=== PATIENT | female | born 1945 | race Caucasian/White ===

== ENCOUNTER 2016-07-11 22:12 | Inpatient (IN) | payer MEDICARE, OTHER ==
--- NOTE | ~2016-07-11 | HP ---
Unit #: [id number] #: [id number] Patient: RAE CLIFTON [id number] [address] [address] [id number] I MR#: [id number] NAME: RAE CLIFTON. ROOM: [facility] Age: 70 Sex: F Admission Date: 07/11/2016 : 1945 Attending Physician: Nicole El M.D. Primary Care Physician: Cameron Baig M.D. HISTORY AND PHYSICAL CHIEF COMPLAINT Community acquired pneumonia, COPD exacerbation, and acute hypoxic respiratory failure. HISTORY This 70-year-old female with COPD, hyperlipidemia, peripheral vascular disease, was transferred from [facility] emergency department for COPD exacerbation. The patient states that she was well until one week ago when she developed increasing shortness of breath with a deep cough productive of some clear sputum, feeling feverish and chilled. Presented to [facility] emergency department late last evening with an initial room air O2 saturation of 88%, she is febrile to 101.8, and tachycardic to 120. She was treated with Solu-Medrol, DuoNeb, Tylenol, IV fluids, potassium, Rocephin, Zithromax and Phenergan. On examination, she has end expiratory wheeze. Chest x-ray shows an atypical pneumonia. PAST MEDICAL HISTORY 1. COPD, patient does not require oxygen. 2. DJD. 3. Hyperlipidemia. 4. GERD. 5. Peripheral vascular disease, status post bilateral stenting to the legs. 6. Chronic low back pain. 7. Total abdominal hysterectomy. 8. Left breast cyst removed. ALLERGIES None. HOME MEDICATIONS Lipitor 80 mg daily; Proventil nebulizer as needed; Percocet 7.5/325 t.i.d. p.r.n.; Lasix 20 mg daily as needed; Phenergan p.r.n.; Mobic 15 mg as needed; aspirin 81 mg daily; Elavil 25 mg 1-2 tablets q.h.s.; Neurontin 300 mg t.i.d.. FAMILY HISTORY CAD. SOCIAL HISTORY The patient lives alone. She smoked a pack or more a day for 50 years. Stopped smoking six months ago. Seldom drinks alcohol. Unit #: [id number] #: [id number] Patient: RAE CLIFTON REVIEW OF SYSTEMS Notable for shortness of breath, productive cough, fever, sweats, chills, shortness of breath, DJD, hyperlipidemia, COPD, acid reflux, peripheral vascular disease, chronic back pain and above mentioned surgeries. All other systems were reviewed and are negative. PHYSICAL EXAMINATION GENERAL: Pleasant 70-year-old female currently in no acute distress. She is, however, feeling short of breath. VITAL SIGNS: Temperature as high as 101.8, pulse 80, respirations 25, blood pressure 111/51, weight is 139 pounds with a BMI of 24. HEENT: Eyes - PERRLA. Extraocular muscles are intact. Pharynx is benign. NECK: Supple without adenopathy or thyromegaly. CHEST: End expiratory wheezes. CARDIAC: Normal S1 and S2 without definite murmur. ABDOMEN: Bowel sounds are present. No hepatosplenomegaly, tenderness, or masses. EXTREMITIES: Without clubbing, cyanosis or edema. Pedal pulses are diminished. NEUROLOGIC: Patient is awake, alert, and oriented. Cranial nerves are intact. Equal strength throughout. DIAGNOSTIC STUDIES ADMISSION LABS: Hematocrit is 36.2, white blood count is 14.3, and normal platelet count. Negative cardiac markers. Normal coags. SMA 12 - glucose 117, sodium 131, potassium 3.1, chloride 94, albumin 3.4, lactic acid normal, flu serology negative. Urinalysis - 2+ protein. IMAGING STUDIES: Chest x-ray - abnormal interstitial markings. Normal heart size, findings suggestive of some sort of atypical infectious or inflammatory disease. CARDIOLOGY STUDIES: EKG - sinus tachycardia, rate 110. ASSESSMENT 1. Community acquired pneumonia with COPD exacerbation, acute hypoxic respiratory failure. 2. Hyperlipidemia. 3. Hyponatremia. 4. Hypokalemia. 5. Chronic back pain. 6. Peripheral vascular disease. PLANS 1. Zithromax and Rocephin. 2. Steroids, Symbicort, DuoNeb and mucolytics. 3. Replace potassium, which was done at [facility], and check magnesium level. 4. Hold Lasix for now. 5. DVT and gastritis prophylaxis. 6. Further workup depending on above. Dictated by Nicole El M.D. Unit #: [id number] #: [id number] Patient: RAE CLIFTON AML/ts TD: 07/12/2016 07:21 JOB #: [id number] HISTORY AND PHYSICAL X Nicole El MD HISTORY AND PHYSICAL
--- NOTE | ~2016-07-11 | CT55 ---
[facility] A Service of [facility] & [facility] RADIOLOGY TEXT RESULTS PATIENT: RAE CLIFTON LOCATION: [facility] 450-01 : [birth year] UNIT #: [id number] AGE: [address]: Devika Mendes MD SEX: F ORDER DR: [id number] [facility] [address] [place], [place] [address] [id number] I MR#: [id number] Acc #: [id number] NAME: RAE CLIFTON. : 1945 SEX: F STUDY DATE/TIME: 07/12/2016 16:11 UNIT: [facility] ROOM: [facility] STUDY DESCRIPTION: CT Chest W Con Attending Physician: Devika Mendes M.D. Ordering Physician: Devika Mendes M.D. Primary Care Physician: Cameron Baig M.D. MEDICAL IMAGING REPORT This report is preliminary unless electronic signature is present EXAM CT scan of the chest with contrast, 07/12/2016. HISTORY COPD. Productive cough, fever, and shortness of air since Sunday. COMPARISON STUDIES None TECHNIQUE Axial 5-mm images were obtained through the chest with IV contrast. The patient was given 70 mL of Isovue-370. This CT exam was performed with one or more of the following radiation dose reduction techniques: automatic exposure control, adjustment of mA and/or kV according to patient size, and iterative reconstruction. FINDINGS There is a calcified granuloma in the left lingula, and there is some minimal anterior atelectasis in the lingula with some faint tree-in-bud type infiltrates in the left upper lobe. There are centrilobular emphysematous changes throughout the lungs. There is very minimal right base atelectasis. There is no mediastinal or hilar adenopathy. The thyroid gland is normal. The bones are unremarkable. IMPRESSION 1. Mild centrilobular emphysematous changes throughout the lungs. 2. Minimal anterior plate-like atelectasis with minimal tree-in-bud type infiltrate in the left upper lobe. 3. Minimal right base costophrenic angle atelectasis. 4. Otherwise, normal. STS. [facility] A Service of [facility] & [facility] RADIOLOGY TEXT RESULTS PATIENT: RAE CLIFTON LOCATION: [place] [address]- : [birth year] UNIT #: [id number] AGE: [address]: Devika Mendes MD SEX: F ORDER DR: Dictated by... Nicola Partida M.D. THIS IS AN ELECTRONICALLY VERIFIED REPORT Nicola Partida M.D. at 07/13/2016 7:26 AM NANCY/jacquelin TD: 07/12/2016 18:47 JOB #: [id number] MEDICAL IMAGING REPORT COPY
--- NOTE | ~2016-07-11 | EKG ---
PATIENT: RAE CLIFTON UNIT #: [id number] Ventricular Rate: 108 BPM Atrial Rate: 108 BPM P-R Interval: 160 ms QRS Duration: 82 ms Q-T Interval: 324 ms QTC Calculation(Bezet): 434 ms P [place]: 72 degrees Calculated R [place]: 64 degrees Calculated T [place]: 59 degrees Diagnosis Line: Sinus tachycardia Diagnosis Line: Poor R wave progression questionable lead position Diagnosis Line: or body habitus Otherwise normal ECG Diagnosis Line: No previous ECGs available Diagnosis Line: Confirmed by GORDO FLORES MD ([id number]) on 07/13/2016 Diagnosis Line: 12:55:00 PM INTERPRETING MD: MARK LAMBERT
--- NOTE | ~2016-07-11 | CR72 ---
[facility] A Service of [facility] & [facility] RADIOLOGY TEXT RESULTS PATIENT: RAE CLIFTON LOCATION: [facility] 450- : [birth year] UNIT #: [id number] AGE: [address]: Devika Mendes MD SEX: F ORDER DR: [id number] [place] [id number] I MR#: [id number] Acc #: [id number] NAME: RAE CLIFTON. : 1945 SEX: F STUDY DATE/TIME: 07/11/2016 21:49 UNIT: SEDOF ROOM: [facility] STUDY DESCRIPTION: CR Chest Single View Portable Attending Physician: Nicole El M.D. Ordering Physician: Sam Peters M.D. Primary Care Physician: Cameron Baig M.D. MEDICAL IMAGING REPORT This report is preliminary unless electronic signature is present. EXAM Portable chest x-ray single view, 07/11/2016 HISTORY Cough, short of air and fever x5 days COMMENT Single frontal portable view of the chest timed 21:49 07/11/2016 compared to 01/31/2013. Heart size is within normal limits. There is calcification at the aortic knob and evidence for old granulomatous disease. There is interval worsening in the appearance of the lung parenchyma with the development of abnormal thickening of the peribronchovascular soft tissues, particularly to the bilateral lower lungs as well as generalized abnormal interstitial prominence, worst to the lower lobes with probably some bilateral lower lobe reticulonodular parenchymal disease. Findings are more concerning for atypical infectious or inflammatory disease. Lack of cardiac enlargement or obvious pleural effusion weighs against congestive failure. The pattern of involvement is not typical of a bacterial pneumonia. Clinical correlation and follow up is recommended. The costophrenic angles are not included in the field of view entirely and tiny pleural effusion is not excluded. There is no pneumothorax. IMPRESSION Abnormal chest x-ray with the interval development of abnormal interstitial markings. There is thickening of the central peribronchovascular soft tissues as well as a development of bilateral predominately lower lung reticulonodular interstitial disease. Heart size is still normal. Findings most suggestive of some type of atypical infectious of inflammatory disease. Findings are not typical of bacterial pneumonia or congestive failure. Clinical correlation and followup is STS. [facility] A Service of [facility] RADIOLOGY TEXT RESULTS PATIENT: RAE CLIFTON LOCATION: B 450-01 : [birth year] UNIT #: [id number] AGE: [address]: Devika Mendes MD SEX: F ORDER DR: recommended. Dictated by... Keren Lin M.D. THIS IS AN ELECTRONICALLY VERIFIED REPORT Keren Lin M.D. at 07/12/2016 2:18 PM PARAMJIT/soy TD: 07/12/2016 02:29 JOB #: [id number] MEDICAL IMAGING REPORT
--- NOTE | ~2016-07-11 | DS ---
Unit #: [id number] #: [id number] Patient: RAE CLIFTON [id number] [address] [address] [id number] I MR#: [id number] NAME: RAE CLIFTON. ROOM: 464 Age: 70 Sex: F Admission Date: 07/12/2016 : 1945 Discharge Date: Attending Physician: Devika Mendes M.D. Primary Care Physician: Cameron Baig M.D. DISCHARGE SUMMARY DISCHARGE DIAGNOSES 1. Acute hypoxic respiratory failure. 2. Community-acquired pneumonia, left upper lobe. 3. Chronic obstructive pulmonary disease with exacerbation. 4. Hyperlipidemia. 5. Hyponatremia. 6. Hypokalemia. 7. Chronic back pain. 8. Peripheral vascular disease. 9. Hyperglycemia secondary to steroids. No diabetes. CONSULTATIONS None. PROCEDURES None. DIAGNOSTIC TESTING LAB DATA: Hemoglobin A1C 5.6. WBC 14.9, hemoglobin 11.6, platelets 340. Sodium 141, potassium 4.2, creatinine 0.6. Blood cultures negative. Legionella negative. BNP 127. IMAGING: CT of the chest without contrast shows mild centrilobular emphysematous changes, tree-in-bud infiltrate left upper lobe. ALLERGIES None. DISCHARGE MEDICATIONS 1. Albuterol inhalation q.i.d. as needed. 2. Symbicort 2 puffs inhalation b.i.d. 3. Neurontin 300 p.o. t.i.d. 4. Amitriptyline 25 at bedtime. 5. Phenergan 12.5 take 1-2 tablets p.r.n. nausea. 6. Lipitor 80 daily. 7. Lasix 10 mg daily. 8. Aspirin 81 daily. 9. Oxycodone 7.5 mg q.8 p.r.n. 10. Prednisone tapering dose. 11. Doxycycline 100 mg p.o. b.i.d. HOSPITALIZATION COURSE A 70 year old admitted because of shortness of breath. Unit #: [id number] #: [id number] Patient: RAE CLIFTON Acute hypoxic respiratory failure from pneumonia and COPD. Currently she is on 2 liters. I am going check ambulatory pulse oximetry and arrange home O2 if sats less than 89%. Community-acquired pneumonia, left upper lobe. The patient was given Rocephin and Zithromax. Currently lungs are clear. The patient will be discharged on doxycycline. COPD with exacerbation. Started on IV Solu-Medrol, Symbicort and DuoNeb. Currently breathing better. Continue with albuterol, Symbicort, prednisone tapering dose. Mild hyperkalemia. Continue with her Lasix, which has been on hold at admission. Hyperglycemia secondary to steroids. Hemoglobin A1C is normal. Less likely diabetes. DISCHARGE PLAN 1. Discharge home. 2. Follow with family physician in 1 week. NOTE: Discharge time taken is 32 minutes. Dictated by... Carlyle Stout/chelsey TD: 07/14/2016 16:03 JOB #: [id number] DISCHARGE SUMMARY X Devika Mendes MD X DISCHARGE SUMMARY
[2016-07-11 22:02] LABS: BASOPHIL# 0.4 X10e3 (0.0-0.3); EOSINOPHIL# 0.1 X10e3 (0.0-0.7); EOSINOPHIL% 0.8 % (0.0-7.0); HEMATOCRIT 36.2 % (35.0-45.0); HEMOGLOBIN 12.6 gm/dl (12.0-16.0); LYMPHOCYTE# 0.7 X10e3 (1.0-3.5); LYMPHOCYTE% 5.2 % (17.0-45.0); MEAN CELL VOLUME 96.5 FL (83-96); MEAN CORPUSCULAR HEMOGLOBIN 33.6 PG (28-34); MEAN CORPUSCULAR HGB CONC 34.8 g/dL (30-36); MEAN PLATELET VOLUME 8.2 FL (6.5-11.5); MONOCYTE# 1.1 X10e3 (0.0-1.0); MONOCYTE% 7.8 % (3.0-12.0); NEUTROPHIL% 83.2 % (40.0-75.0); PLATELET COUNT 305 X10e3 (140-420); RED BLOOD COUNT 3.75 X10e6 (3.90-5.30); RED CELL DISTRIBUTION WIDTH 12.8 % (11.0-15.5); WHITE BLOOD COUNT 14.3 X10e3 (4.0-10.5)
[2016-07-11 22:03] LABS: DIFF IND NO
[2016-07-11 22:07] LABS: INR 1.2; PROTHROMBIN TIME (PATIENT) 13.1 SECONDS (9.5-12.4)
[2016-07-11 22:11] LABS: INFLUENZA A NEG (NEG); INFLUENZA B NEG (NEG)
[~2016-07-11 22:12] MED LIST: ALBUTEROL 0.5ML INH; AMITRYPTYLINE PO; ASPIR-TRIN325 MG PO; ASPIRIN81 M2 PO; CLARITIN10 M2 PO; FOSAMAX70 MG PO; GABAPENTIN300 M2 PO; HYDROXYZINE HCL25 M1 PO; KWELL TOP; LASIX PO; LIPITOR80 MG PO; LISINOPRIL10 MG PO; MOBIC15 MG PO; OXYCODON-ACETA1 EAC1 PO; PEPCID AC20 M2 PO; PHENERGAN25 M1 PO; PREDNISONE PO; PRILOSEC40 MG PO; TRIAMCINOLONE AC1 GM TOP; VITAMIN C AND D PO; VITAMIN D250000 UNIT PO; ZOLOFT PO
[2016-07-11 22:15] LABS: PARTIAL THROMBOPLASTIN TIME 30.9 SECONDS (25.6-38.1)
[2016-07-11 22:17] LABS: ALBUMIN SERUM 3.4 g/dL (3.5-5.0); ALKALINE PHOSPHATASE 74 U/L (32-92); ALT (SGPT) 17 U/L (10-40); AST (SGOT) 21 U/L (10-42); BILIRUBIN, DIRECT 0.1 mg/dL (0.0-0.2); BILIRUBIN,INDIRECT 0.2 mg/dL (0.0-0.9); BILIRUBIN,TOTAL 0.3 mg/dL (0.2-2.0); BLOOD UREA NITROGEN 10 mg/dL (9-23); BUN/CREATININE RATIO 16.66; CALCIUM SERUM 9.1 mg/dL (8.4-10.2); CARBON DIOXIDE 27 mmol/L (22-31); CHLORIDE 94 mmol/L (100-111); CREATININE SERUM 0.6 mg/dL (0.6-1.4); GLOM FILT RATE Estimated ABOVE60 mL/min (>60); GLUCOSE FASTING 117 mg/dL (70-110); POTASSIUM 3.1 mmol/L (3.5-5.1); PROTEIN TOTAL SERUM 6.8 g/dL (6.0-8.3); SODIUM 131 mmol/L (135-145)
[2016-07-11 22:22] LABS: POC - TROPONIN <0.05 ng/mL (<=0.05)
[2016-07-11 22:52] LABS: URINE SOURCE CLEAN CATCH
[2016-07-11 22:55] LABS: URINE APPEARANCE CLEAR; URINE BILIRUBIN NEG (NEG); URINE BLOOD NEG (NEG); URINE COLOR YELLOW; URINE GLUCOSE NEG (NORM); URINE KETONE 1+ (NEG); URINE LEUKOCYTE ESTERASE NEG (NEG); URINE NITRATE NEG (NEG); URINE PH 5.5 (5-8); URINE PROTEIN 2+ (NEG); URINE SPECIFIC GRAVITY >=1.030 (1.003-1.035)
[2016-07-11 22:57] LABS: MICRO INDICATED? NO
[2016-07-12 00:06] LABS: POC - CKMB 2.2 ng/mL (0.0-7.9)
[2016-07-12 00:07] LABS: POC - TROPONIN <0.05 ng/mL (<=0.05)
[2016-07-12 07:12] LABS: URINE SOURCE CLEAN CATCH
[2016-07-12 07:29] LABS: URINE APPEARANCE CLEAR; URINE BILIRUBIN NEG (NEG); URINE BLOOD NEG (NEG); URINE COLOR YELLOW; URINE GLUCOSE NEG (NEG); URINE KETONE NEG (NEG); URINE LEUKOCYTE ESTERASE NEG (NEG); URINE NITRATE NEG (NEG); URINE PH 6.5 (5-8); URINE PROTEIN NEG (NEG); URINE SPECIFIC GRAVITY 1.004 (1.003-1.035); URINE UROBILINOGEN 0.2 MG/DL (NEG)
[2016-07-12 07:35] LABS: CULTURE INDICATED? NO
[2016-07-12 07:41] LABS: BASOPHIL% 0.1 % (0-2.5); HEMATOCRIT 35.1 % (35.0-45.0); HEMOGLOBIN 11.7 gm/dL (12.0-16.0); LYMPHOCYTE# 0.7 X10e3 (1.0-3.5); MEAN CELL VOLUME 98.8 FL (83-96); MEAN CORPUSCULAR HEMOGLOBIN 32.9 PG (28-34); MEAN CORPUSCULAR HGB CONC 33.3 g/dL (30-36); MEAN PLATELET VOLUME 8.2 FL (6.5-11.5); MONOCYTE# 0.2 X10e3 (0-1.0); MONOCYTE% 1.7 % (3.0-12.0); NEUTROPHIL# 11.2 X10e3 (1.5-7.1); NEUTROPHIL% 92.2 % (40-75); PLATELET COUNT 264 X10e3 (140-420); RED BLOOD COUNT 3.55 X10e (3.90-5.30); RED CELL DISTRIBUTION WIDTH 13.1 % (11.0-15.5); WHITE BLOOD COUNT 12.2 X10e3 (4.0-10.5)
[2016-07-12 07:43] LABS: DIFF IND NO
[2016-07-12 08:12] LABS: BLOOD UREA NITROGEN 9 mg/dL (9-23); CALCIUM SERUM 9.2 mg/dL (8.4-10.2); CARBON DIOXIDE 28 mmol/L (22-31); CHLORIDE 100 mmol/L (100-111); CREATININE SERUM 0.4 mg/dL (0.6-1.4); GLOM FILT RATE Estimated ABOVE60 mL/min (>60); GLUCOSE FASTING 162 mg/dL (70-110); MAGNESIUM 2.1 mg/dL (1.6-3.0); POTASSIUM 4.2 mmol/L (3.5-5.1); SODIUM 134 mmol/L (135-145)
[2016-07-13 02:57] LABS: BASOPHIL% 0.1 % (0-2.5); HEMATOCRIT 33.9 % (35.0-45.0); HEMOGLOBIN 11.1 gm/dL (12.0-16.0); LYMPHOCYTE# 1.1 X10e3 (1.0-3.5); LYMPHOCYTE% 8.8 % (17.0-45.0); MEAN CELL VOLUME 99.5 FL (83-96); MEAN CORPUSCULAR HEMOGLOBIN 32.7 PG (28-34); MEAN CORPUSCULAR HGB CONC 32.8 g/dL (30-36); MEAN PLATELET VOLUME 8.5 FL (6.5-11.5); MONOCYTE# 0.6 X10e3 (0-1.0); MONOCYTE% 5.1 % (3.0-12.0); NEUTROPHIL# 10.4 X10e3 (1.5-7.1); PLATELET COUNT 288 X10e3 (140-420); RED BLOOD COUNT 3.41 X10e (3.90-5.30); RED CELL DISTRIBUTION WIDTH 13.5 % (11.0-15.5); WHITE BLOOD COUNT 12.1 X10e3 (4.0-10.5)
[2016-07-13 02:59] LABS: DIFF IND NO
[2016-07-13 03:41] LABS: BLOOD UREA NITROGEN 14 mg/dL (9-23); CARBON DIOXIDE 27 mmol/L (22-31); CHLORIDE 106 mmol/L (100-111); CREATININE SERUM 0.5 mg/dL (0.6-1.4); GLOM FILT RATE Estimated ABOVE60 mL/min (>60); GLUCOSE FASTING 165 mg/dL (70-110); MAGNESIUM 2.3 mg/dL (1.6-3.0); POTASSIUM 4.7 mmol/L (3.5-5.1); SODIUM 135 mmol/L (135-145)
[2016-07-14 03:40] LABS: BASOPHIL# 0.1 X10e3 (0-0.3); BASOPHIL% 0.4 % (0-2.5); EOSINOPHIL# 0.1 X10e3 (0-0.7); EOSINOPHIL% 0.6 % (0.0-7.0); HEMATOCRIT 35.7 % (35.0-45.0); HEMOGLOBIN 11.6 gm/dL (12.0-16.0); LYMPHOCYTE# 1.4 X10e3 (1.0-3.5); LYMPHOCYTE% 9.2 % (17.0-45.0); MEAN CELL VOLUME 99.5 FL (83-96); MEAN CORPUSCULAR HEMOGLOBIN 32.4 PG (28-34); MEAN CORPUSCULAR HGB CONC 32.5 g/dL (30-36); MEAN PLATELET VOLUME 8.5 FL (6.5-11.5); MONOCYTE# 0.7 X10e3 (0-1.0); MONOCYTE% 4.4 % (3.0-12.0); NEUTROPHIL# 12.7 X10e3 (1.5-7.1); NEUTROPHIL% 85.4 % (40-75); PLATELET COUNT 340 X10e3 (140-420); RED BLOOD COUNT 3.59 X10e (3.90-5.30); RED CELL DISTRIBUTION WIDTH 13.5 % (11.0-15.5); WHITE BLOOD COUNT 14.9 X10e3 (4.0-10.5)
[2016-07-14 03:42] LABS: DIFF IND YES
[2016-07-14 04:03] LABS: BLOOD UREA NITROGEN 17 mg/dL (9-23); BUN/CREATININE RATIO 28.33; CALCIUM SERUM 9.4 mg/dL (8.4-10.2); CARBON DIOXIDE 27 mmol/L (22-31); CHLORIDE 108 mmol/L (100-111); CREATININE SERUM 0.6 mg/dL (0.6-1.4); GLOM FILT RATE Estimated ABOVE60 mL/min (>60); GLUCOSE FASTING 150 mg/dL (70-110); POTASSIUM 5.2 mmol/L (3.5-5.1); SODIUM 141 mmol/L (135-145)
[2016-07-14 04:30] LABS: ANISOCYTOSIS SL; PLATELET ESTIMATE NORMAL (NORMAL)
[2016-07-14] MEDS ORDERED: SYMBICORT80 INH (15:51)
[2016-07-14] MEDS ORDERED: DOXYCYCLINE150 MG PO (15:52)
[2016-07-14] MEDS ORDERED: PREDNISONE (16:32)
== END 2016-07-14 20:00 | disposition home or self-care (01) | DRG 189 ==
LOC: SED 22:12 → C4B 07-12 04:40 → C4C 07-14 13:11
PROVIDERS: Emergency Medicine; Internal Medicine
DX: J96.01 Acute respiratory failure with hypoxia (principal); J18.9 Pneumonia, unspecified organism; E09.65 Drug or chemical induced diabetes mellitus with hyperglycemia; E87.1 Hypo-osmolality and hyponatremia; D64.9 Anemia, unspecified; J44.1 Chronic obstructive pulmonary disease with (acute) exacerbation; E78.5 Hyperlipidemia, unspecified; I73.9 Peripheral vascular disease, unspecified; M19.90 Unspecified osteoarthritis, unspecified site; K21.9 Gastro-esophageal reflux disease without esophagitis; Z90.710 Acquired absence of both cervix and uterus; M54.9 Dorsalgia, unspecified; G89.29 Other chronic pain; E87.6 Hypokalemia; Z87.891 Personal history of nicotine dependence; T38.0X5A Adverse effect of glucocorticoids and synthetic analogues, initial encounter
CPT/HCPCS: 36415; 71010; 71260; 80048; 80076; 81003; 82553; 83036; 83605; 83735; 83874; 83880; 84484; 85025; 85610; 85730; 87040; 87449; 87804; 93005; 94640; 94760; 96361; 96365; 96375; 99285; J0456; J0696; J1650; J2550; J2920; J2930; Q9967

== ENCOUNTER → 2016-08-15 | Outpatient (CLI) | payer MEDICARE, OTHER ==
[~2016-08-15] MED LIST changes: +ALBUTEROL2.5 MG/3 M; +DOXYCYCLINE150 MG PO; +IPRATR-ALBUTEROL3 ML INH; +PREDNISONE; +SYMBICORT80 INH
[2016-08-15 17:35] LABS: HEMATOCRIT 45.7 % (35.0-45.0); HEMOGLOBIN 14.8 gm/dL (12.0-16.0); MEAN CELL VOLUME 100.2 FL (83-96); MEAN CORPUSCULAR HEMOGLOBIN 32.4 PG (28-34); MEAN CORPUSCULAR HGB CONC 32.4 g/dL (30-36); RED BLOOD COUNT 4.56 X10e (3.90-5.30); RED CELL DISTRIBUTION WIDTH 14.8 % (11.0-15.5); WHITE BLOOD COUNT 10.8 X10e3 (4.0-10.5)
[2016-08-15 18:06] LABS: ALBUMIN SERUM 4.4 g/dL (3.5-5.0); BILIRUBIN, DIRECT 0.1 mg/dL (0.0-0.2); BILIRUBIN,TOTAL 0.5 mg/dL (0.2-2.0); CREATININE SERUM 0.6 mg/dL (0.6-1.4); GLOM FILT RATE Estimated 92.4 mL/min (>60); POTASSIUM 4.1 mmol/L (3.5-5.1); PROTEIN TOTAL SERUM 6.6 g/dL (6.0-8.3)
== END | disposition home or self-care (01) ==
LOC: CLAB 16:51
PROVIDERS: Dermatology
DX: L29.9 Pruritus, unspecified (principal)
CPT/HCPCS: 36415; 80053; 82248; 82955; 83540; 83550; 85027

== ENCOUNTER 2016-11-05 21:29 | Emergency (ER) | payer MEDICARE, OTHER ==
--- NOTE | ~2016-11-05 | EKG ---
PATIENT: RAE CLIFTON UNIT #: [id number] Ventricular Rate: 96 BPM Atrial Rate: 96 BPM P-R Interval: 156 ms QRS Duration: 96 ms Q-T Interval: 350 ms QTC Calculation(Bezet): 442 ms P [place]: 72 degrees Calculated R [place]: 62 degrees Calculated T [place]: 48 degrees Diagnosis Line: Normal sinus rhythm Diagnosis Line: Low voltage QRS Diagnosis Line: Borderline ECG Diagnosis Line: When compared with ECG of 11-JUL-2016 21:46, Diagnosis Line: No significant change was found Diagnosis Line: Confirmed by MALIKA SONI MD ([id number]) on Diagnosis Line: 11/08/2016 8:31:07 AM INTERPRETING MD: NAE LAMBERT
--- NOTE | ~2016-11-05 | CR72 ---
[facility] A Service of [facility] & [facility] RADIOLOGY TEXT RESULTS PATIENT: RAE CLIFTON LOCATION: SED : 45 UNIT #: [id number] AGE: [address]: Miguel Angel Ontiveros MD SEX: F ORDER DR: [id number] [place] [address] [id number] E MR#: [id number] Acc #: [id number] NAME: RAE CLIFTON : 1945 SEX: F STUDY DATE/TIME: 11/05/2016 22:49 UNIT: SED ROOM: STUDY DESCRIPTION: CR Chest Single View Portable Attending Physician: Miguel Angel Ontiveros M.D. Ordering Physician: Miguel Angel Ontiveros M.D. Primary Care Physician: Cameron Baig M.D. MEDICAL IMAGING REPORT This report is preliminary unless electronic signature is present. EXAM Portable chest, 11/05 22:49 INDICATION Shortness of air, cough, congestion for 2 days. Former smoker. FINDINGS AP portable chest is compared with 07/11/2016. Cardiac and mediastinal contours are normal. There is atherosclerotic disease in the aorta. There is emphysema with some fibrosis in the bases. Findings are stable. Granulomatous calcifications noted. No pneumothorax. IMPRESSION Emphysema with chronic fibrosis or scarring in the bases. No acute findings and no significant interval change. Dictated by... Ayan Campbell Jr., M.D. THIS IS AN ELECTRONICALLY VERIFIED REPORT Ayan Campbell Jr., M.D. at 11/06/2016 9:13 PM AMY/consuelo TD: 11/06/2016 09:53 JOB #: [id number] MEDICAL IMAGING REPORT Page 1 of 1
[~2016-11-05 21:29] MED LIST changes: -ALBUTEROL2.5 MG/3 M; -IPRATR-ALBUTEROL3 ML INH
[2016-11-05] MEDS ORDERED: MOBIC15 MG PO (21:40)
[2016-11-05] MEDS ORDERED: IPRATR-ALBUTEROL3 ML INH (21:40)
[2016-11-05] MEDS ORDERED: ALBUTEROL2.5 MG/3 M (21:40)
[2016-11-05 22:06] LABS: BASOPHIL# 0.1 X10e3 (0-0.3); BASOPHIL% 0.5 % (0-2.5); EOSINOPHIL# 0.1 X10e3 (0-0.7); EOSINOPHIL% 1.1 % (0.0-7.0); HEMATOCRIT 35.7 % (35.0-45.0); LYMPHOCYTE# 1.4 X10e3 (1.0-3.5); LYMPHOCYTE% 10.8 % (17.0-45.0); MEAN CELL VOLUME 98.1 FL (83-96); MEAN CORPUSCULAR HGB CONC 33.7 g/dL (30-36); MEAN PLATELET VOLUME 7.5 FL (6.5-11.5); MONOCYTE# 1.2 X10e3 (0-1.0); MONOCYTE% 8.9 % (3.0-12.0); NEUTROPHIL# 10.4 X10e3 (1.5-7.1); NEUTROPHIL% 78.7 % (40-75); PLATELET COUNT 312 X10e3 (140-420); RED BLOOD COUNT 3.64 X10e (3.90-5.30); RED CELL DISTRIBUTION WIDTH 13.9 % (11.0-15.5); WHITE BLOOD COUNT 13.2 X10e3 (4.0-10.5)
[2016-11-05 22:07] LABS: DIFF IND NO
[2016-11-05 22:23] LABS: POC - CKMB 1.1 ng/mL (0.0-7.9); POC - TROPONIN <0.05 ng/mL (<=0.05)
[2016-11-05 22:25] LABS: BUN/CREATININE RATIO 18.33; CALCIUM SERUM 8.9 mg/dL (8.4-10.2); CREATININE SERUM 0.6 mg/dL (0.6-1.4); GLOM FILT RATE Estimated 92.4 mL/min (>60); POTASSIUM 3.6 mmol/L (3.5-5.1)
== END 2016-11-06 00:07 | disposition home or self-care (01) ==
LOC: SED 21:29
PROVIDERS: Emergency Medicine
DX: J44.1 Chronic obstructive pulmonary disease with (acute) exacerbation (principal); E78.5 Hyperlipidemia, unspecified; Z79.82 Long term (current) use of aspirin; Z79.899 Other long term (current) drug therapy
CPT/HCPCS: 36415; 71010; 80048; 82553; 84484; 85025; 93005; 94640; 96374; 99285; J2930